=== PATIENT | female | born 1980 | race Caucasian/White ===

== ENCOUNTER 2020-06-13 14:09 | Emergency (ER) | payer SELFPAY ==
[~2020-06-13] VITALS: Ht 172.7 cm; Wt 84.1 kg
[2020-06-13 14:12] VITALS: BP 135/75
[2020-06-13 15:14] LABS: COVID AG,FIA SOURCE NASOPHARYNGEAL
== END 2020-06-13 15:19 | disposition home or self-care (01) ==
LOC: EMS 14:27
DX: J02.9 Acute pharyngitis, unspecified (principal); R06.00 Dyspnea, unspecified; Z20.822 Contact with and (suspected) exposure to COVID-19
CPT/HCPCS: 87426; 99283; C9803

== ENCOUNTER 2020-10-11 04:05 | Emergency (ER) | payer SELFPAY ==
[~2020-10-11] VITALS: Ht 167.6 cm; Wt 88.6 kg
[2020-10-11] MEDS ORDERED: KETOROLAC TROMETHAMINE 30 MG/ML VIAL IM ONE (05:15)
[2020-10-11 06:00] VITALS: BP 132/75
[2020-10-11] MEDS ORDERED: HYDROCODONE/ACETAMINOPHEN 5-325 MG TABLET PO ONE (06:15)
== END 2020-10-11 06:17 | disposition home or self-care (01) ==
LOC: EMS 04:05
DX: S52.612A Displaced fracture of left ulna styloid process, initial encounter for closed fracture (principal); S52.572A Other intraarticular fracture of lower end of left radius, initial encounter for closed fracture; W19.XXXA Unspecified fall, initial encounter; Y93.89 Activity, other specified; Y92.89 Other specified places as the place of occurrence of the external cause; Y99.8 Other external cause status
CPT/HCPCS: 29125; 73110; 73130; 81025; 96372; 99284; J1885

== ENCOUNTER 2024-02-26 08:51 | Emergency (ER) | payer OTHER ==
[~2024-02-26] VITALS: Ht 160 cm; Wt 84.1 kg
[2024-02-26] MEDS ORDERED: IBUP-45 PO (08:56)
[2024-02-26 08:57] VITALS: TEMP 98.6
[2024-02-26] MEDS: ACETAMINOPHEN 500 MG TABLET PO ONE (10:20)
[2024-02-26 11:15] VITALS: BP 104/72; PULSE 87; RESP 18; O2SAT 97
[2024-02-26] MEDS ORDERED: ACET-3385 PO (12:01)
== END 2024-02-26 13:14 | disposition home or self-care (01) ==
LOC: EMS 08:51
DX: S09.90XA Unspecified injury of head, initial encounter (principal); Z88.0 Allergy status to penicillin; Y04.8XXA Assault by other bodily force, initial encounter; Y93.89 Activity, other specified; Y92.89 Other specified places as the place of occurrence of the external cause; Y99.8 Other external cause status
CPT/HCPCS: 70450; 70486; 72125; 99284